=== PATIENT | male | born 1980 | race Caucasian/White ===

== ENCOUNTER 2019-06-19 17:09 | Emergency (ER) | payer MEDICARE, MEDICAID ==
[~2019-06-19] VITALS: Ht 190 cm; Wt 66.8 kg
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
[2019-06-19 18:20] LABS: HEMATOCRIT 31 % (40-54); HEMOGLOBIN 9.9 G/DL (13.3-17.7); MEAN CORPUSCULAR HEMOGLOBIN 31 PG (25-34); MEAN CORPUSCULAR HGB CONC 32 G/DL (32-36); MEAN CORPUSCULAR VOLUME 96 FL (80-99); WHITE BLOOD COUNT 4.4 10^3/uL (4.3-11.0)
[2019-06-19 18:21] LABS: BASOPHILS # (AUTO) 0.1 10^3/uL (0.0-0.1); BASOPHILS % (AUTO) 1 % (0-10); EOSINOPHILS % (AUTO) 1 % (0-10); LYMPHOCYTES # (AUTO) 0.9 X 10^3 (1.0-4.0); LYMPHOCYTES % (AUTO) 21 % (12-44); MEAN PLATELET VOLUME 9.8 FL (7.4-10.4); MONOCYTES # (AUTO) 0.5 X 10^3 (0.0-1.0); MONOCYTES % (AUTO) 11 % (0-12); NEUTROPHILS # (AUTO) 2.9 X 10^3 (1.8-7.8); NEUTROPHILS % (AUTO) 66 % (42-75); PLATELET COUNT 174 10^3/uL (130-400)
[2019-06-19 18:40] LABS: ALANINE AMINOTRANSFERASE 11 U/L (0-55); ALKALINE PHOSPHATASE 44 U/L (40-136); BILIRUBIN,TOTAL 0.8 MG/DL (0.1-1.0); BUN/CREATININE RATIO 7; CALCIUM 9.1 MG/DL (8.5-10.1); CARBON DIOXIDE 22 MMOL/L (21-32); CHLORIDE 101 MMOL/L (98-107); CREATININE SERUM 1.02 MG/DL (0.60-1.30); GFR ESTIMATED > 60; GLUCOSE 78 MG/DL (70-105); POTASSIUM 3.7 MMOL/L (3.6-5.0); SODIUM 143 MMOL/L (135-145); TOTAL PROTEIN 6.5 GM/DL (6.4-8.2)
[2019-06-19 18:41] LABS: ACETAMINOPHEN < 10 UG/ML (10-30); ALBUMIN 4.1 GM/DL (3.2-4.5); SALICYLATE < 5.0 MG/DL (5.0-20.0)
--- NOTE | 2019-06-19 19:00 | NUR ---
Report to Chantell RUIZ.
--- NOTE | 2019-06-19 19:40 | NUR ---
pt ambulated to restroom, pt remains non verbal with staff when talking with pt.
--- NOTE | 2019-06-19 20:22 | NUR ---
pt wandering in [facility], family remains present with pt
--- NOTE | 2019-06-19 20:25 | NUR ---
pt inappropriate with laugh when questioned about needing urine specimen. Family will try to help pt obtain.
--- NOTE | 2019-06-19 20:45 | NUR ---
Shree elizondo in ED - 06/19/19 at 2249 by [id number] pt inappropriate with marisa when questioned about needing urine specimen.
[2019-06-19 20:49] LABS: AMPHETAMINE SCREEN, URINE NEGATIVE (NEGATIVE); BARBITURATE SCREEN URINE NEGATIVE (NEGATIVE); BENZODIAZEPINES SCREEN URINE NEGATIVE (NEGATIVE); CANNABINOID SCREEN, URINE NEGATIVE (NEGATIVE); COCAINE SCREEN URINE NEGATIVE (NEGATIVE); METHADONE STAT NEGATIVE (NEGATIVE); METHAMPHETAMINE SCREEN URINE S NEGATIVE (NEGATIVE); OPIATE SCREEN URINE NEGATIVE (NEGATIVE); OXYCODONE STAT NEGATIVE (NEGATIVE); PROPOXYPHENE STAT NEGATIVE (NEGATIVE); TRICYCLIC ANTIDEPRESSANTS SCRE NEGATIVE (NEGATIVE)
--- NOTE | 2019-06-19 21:20 | NUR ---
[facility] notified of need for screening. ref# [id number]
--- NOTE | 2019-06-19 22:00 | NUR ---
Nadeen with [facility] attempting to screen pt, pt remains non verbal. [facility] will try to get a screener on site since pt does not like video monitor
[2019-06-19 22:32] VITALS: BP 130/78
--- NOTE | 2019-06-19 22:50 | NUR ---
Mitch with [facility] here for face to face screening
[2019-06-20 00:45] LABS: BILIRUBIN,URINE 2+ (NEGATIVE); CALCIUM OXALATE CRYSTALS,UR MODERATE /LPF; CLARITY,URINE CLEAR; COLOR,URINE YELLOW; GLUCOSE, URINE (UA) NEGATIVE (NEGATIVE); KETONES,URINE 3+ (NEGATIVE); LEUKOCYTE ESTERASE ,URINE NEGATIVE (NEGATIVE); NITRITE,URINE NEGATIVE (NEGATIVE); PH,URINE 5.5 (5-9); PROTEIN,URINE NEGATIVE (NEGATIVE)
[2019-06-20 02:12] VITALS: BP 108/55
--- NOTE | 2019-06-20 02:20 | NUR ---
Mitch with [facility] called stating [facility] wants affidavits from pts mother and sister.
--- NOTE | 2019-06-20 03:05 | NUR ---
affidavits from mother and sister faxed to [facility]
[2019-06-20 04:32] VITALS: BP 99/48
--- NOTE | 2019-06-20 05:10 | NUR ---
[facility] called to talk with Dr Terrell, they have accepted pt, will call back with a bed.
--- NOTE | 2019-06-20 06:05 | NUR ---
report called to Vanita at [facility]
--- NOTE | 2019-06-20 07:25 | NUR ---
Approach to patient standing in the dark in the corner of patient room. Family is present. Vitals needed for transfer. Pt allows applying NIBP and SaO2 but head darts from every form of thermometer. Family state he has fear of cutting hair and think he is not understanding these are thermometers.
[2019-06-20 07:30] VITALS: BP 101/64
--- NOTE | 2019-06-20 07:30 | NUR ---
EMS here for transfer.
[2019-06-20 07:45] VITALS: BP 101/64
--- NOTE | 2019-06-20 07:45 | NUR ---
EMS departure from ER to [facility]. Call to Michelle to advice of depart with approx 1 hr ETA.
== END 2019-06-20 07:45 | disposition short-term general hospital (02) ==
LOC: ER FS 17:13
DX: F28 Other psychotic disorder not due to a substance or known physiological condition (principal); F20.9 Schizophrenia, unspecified; Z91.14 Patient's other noncompliance with medication regimen
CPT/HCPCS: 36415; 80053; 80306; 80320; 80329; 81000; 85025; 93005

== ENCOUNTER 2019-11-17 13:20 | Emergency (ER) | payer MEDICARE, MEDICAID ==
[~2019-11-17] VITALS: Ht 187 cm; Wt 81.0 kg
--- OUTSIDE RECORDS SUMMARY | 2019-11-17 13:25 | XMS REPORT | Continuity of Care Document ---
Author Organization Unknown Address Unknown Phone Unavailable Allergies Active Description Code Type Severity Reaction Onset Reported/Identified Relationship to Patient Clinical Status Yes No Known Drug Allergies [id number] Drug Allergy Unknown N/A 06/20/2019 Medications There is no data. Problems Date Dx Coded Attending Type Code Diagnosis Diagnosed By 06/20/2019 TOBY QUINTANA MD, Ot F20. 9 SCHIZOPHRENIA, UNSPECIFIED 06/20/2019 TOBY QUINTANA MD, Ot F28 OT PSYCH DISORDER NOT DUE TO A SUB OR K 06/20/2019 TOBY QUINTANA MD, Ot Z91. 14 PATIENT'S OTHER NONCOMPLIANCE WITH MEDIC 06/25/2019 TOBY QUINTANA MD, Ot F20. 9 SCHIZOPHRENIA, UNSPECIFIED 06/25/2019 TOBY QUINTANA MD, Ot F28 OT PSYCH DISORDER NOT DUE TO A SUB OR K 06/25/2019 TOBY QUINTANA MD, Ot Z91. 14 PATIENT'S OTHER NONCOMPLIANCE WITH MEDIC Procedures There is no data. Results Test Result Range Complete blood count (CBC) with automate d white blood cell (WBC) differential - 06/19/19 18:00 Blood leukocytes automated count (number/volume) 4.4 10*3/uL 4.3-11.0 Blood erythrocytes automated count (number/volume) 3.20 10*6/uL 4.35-5.85 Venous blood hemoglobin measurement (mass/volume) 9.9 g/dL 13.3-17.7 Blood hematocrit (volume fraction) 31 % 40-54 Automated erythrocyte mean corpuscular volume 96 [ foz_us] 80-99 Automated erythrocyte mean corpuscular h emoglobin (mass per erythrocyte) 31 pg 25-34 Automated erythrocyte mean corpuscular h emoglobin concentration measurement (mass/volume) 32 g/dL 32-36 Automated erythrocyte distribution width ratio 14. 0 % 10.0- 14.5 Automated blood platelet count (count/volume) 174 10*3/uL 130-400 Automated blood platelet mean volume measurement 9.8 [foz_us] 7.4-10.4 Automated blood neutrophils/100 leukocytes 66 % 42-75 Automated blood lymphocytes/100 leukocytes 21 % 12-44 Blood monocytes/100 leukocytes 11 % 0-12 Automated blood eosinophils/100 leukocytes 1 % 0-10 Automated blood basophils/100 leukocytes 1 % 0-10 Blood neutrophils automated count (number/volume) 2.9 10*3 1.8-7.8 Blood lymphocytes automated count (number/volume) 0.9 10*3 1.0-4.0 Blood monocytes automated count (number/volume) 0. 5 10*3 0.0-1.0 Automated eosinophil count 0.0 10*3/uL 0 .0-0.3 Automated blood basophil count (count/volume) 0.1 10*3/uL 0.0-0.1 Comprehensive metabolic panel - 06/19/19 18:00 Serum or plasma sodium measurement (moles/volume) 143 mmol/L 135-145 Serum or plasma potassium measurement (moles/volume) 3.7 mmol/L 3.6-5.0 Serum or plasma chloride measurement (moles/volume) 101 mmol/L 98-107 Carbon dioxide 22 mmol/L 21-32 Serum or plasma anion gap determination (moles/volume) 20 mmol/L 5-14 Serum or plasma urea nitrogen measurement (mass/volume ) 7 mg/dL 7-18 Serum or plasma creatinine measurement (mass/volume) 1.02 mg/dL 0.60-1.30 Serum or plasma urea nitrogen/creatinine mass ratio 7 NRG Serum or plasma creatinine measurement w ith calculation of estimated glomerular filtration rate > NRG Serum or plasma glucose measurement (mass/volume) 78 mg/dL 70-105 Serum or plasma calcium measurement (mass/volume) 9.1 mg/dL 8.5-10.1 Serum or plasma total bilirubin measurement (mass/volu me) 0.8 mg/dL 0.1-1.0 Serum or plasma alkaline phosphatase tonya surement (enzymatic activity/volume) 44 U/L 40-136 Serum or plasma aspartate aminotransfera se measurement (enzymatic activity/volume) 23 U/L 5-34 Serum or plasma alanine aminotransferase measurement (enzymatic activity/volume) 11 U/L 0-55 Serum or plasma protein measurement (mass/volume) 6.5 g/dL 6.4-8.2 Serum or plasma albumin measurement (mass/volume) 4.1 g/dL 3.2-4.5 CALCIUM CORRECTED 9.0 mg/dL 8.5-10.1 Serum or plasma salicylates measurement (mass/volume) - 06/19/19 18:00 Serum or plasma salicylates measurement (mass/volume) < mg/dL 5.0-20.0 Serum or plasma acetaminophen measuremen t (mass/volume) - 06/19/19 18:00 Serum or plasma acetaminophen measurement (mass/volume ) < ug/mL 10-30 Serum or plasma ethanol measurement (mas s/volume) - 06/19/19 18:00 Serum or plasma ethanol measurement (mass/volume) < mg/dL <10 Urine drug screening test - 06/19/19 20: 27 Urine phencyclidine detection by screening method NEGATIVE NEGATIVE Urine benzodiazepines detection by screening method NEGATIVE NEGATIVE Urine cocaine detection NEGATIVE NEGATI VE Urine amphetamines detection by screening method N EGATIVE NEGATIVE Urine methamphetamine detection by screening method NEGATIVE NEGATIVE Urine cannabinoids detection by screening method N EGATIVE NEGATIVE Urine opiates detection by screening method NEGATI VE NEGATIVE Urine barbiturates detection NEGATIVE N EGATIVE Screening urine tricyclic antidepressants detection NEGATIVE NEGATIVE Urine methadone detection by screening method NEGA TIVE NEGATIVE Urine oxycodone detection NEGATIVE NEGA TIVE Urine propoxyphene detection NEGATIVE N EGATIVE Complete urinalysis with reflex to cultu re - 06/19/19 20:27 Urine color determination YELLOW NRG Urine clarity determination CLEAR NR G Urine pH measurement by test strip 5.5 5-9 Specific gravity of urine by test strip > 1.016-1.022 Urine protein assay by test strip, semi-quantitative NEGATIVE NEGATIVE Urine glucose detection by automated test strip NE GATIVE NEGATIVE Erythrocytes detection in urine sediment by light micr oscopy NEGATIVE NEGATIVE Urine ketones detection by automated test strip 3+ NEGATIVE Urine nitrite detection by test strip NEGATIVE NEGATIVE Urine total bilirubin detection by test strip 2+ NEGATIVE Urine urobilinogen measurement by automated test strip (mass/volume) 0.2 mg/dL < = 1.0 Urine leukocyte esterase detection by dipstick NEG ATIVE NEGATIVE Automated urine sediment erythrocyte cou nt by microscopy (number/high power field) NONE NRG Automated urine sediment leukocyte count by microscopy (number/high power field) NONE NRG Bacteria detection in urine sediment by light microsco py NONE NRG Crystals detection in urine sediment by light microsco py PRESENT NRG Casts detection in urine sediment by light microscopy NONE NRG Mucus detection in urine sediment by light microscopy SMALL NRG Complete urinalysis with reflex to culture NO NRG Calcium oxalate crystals detection in ur ine sediment by light microscopy MODERATE NRG Encounters ACCT No. Visit Date/Time Discharge Status Pt. Type Provider Facility Loc./Unit Complaint [id number] 08/12/2019 09:00:00 08/12/2019 23:59: 59 CLS Outpatient SELF, ABHIJEET Lee [facility] [id number] 06/19/2019 17:13:00 019 07:45:00 DIS Emergency MARIANO CISSE, TOBY Bray [facility] ER FS MENTAL EVALUATION
--- NOTE | 2019-11-17 13:34 | ED Psychosocial ---
General Chief Complaint: Psych/Social Disorder Stated Complaint: AMS/NEEDS AN IV History of Present Illness Date Seen by Provider: Nov 17, 2019 Time Seen by Provider: 13:25 Initial Comments Patient with a history of schizophrenia presents to ER with chief complaint for the Lord told him he needed to have an IV placed for no other reason. No cough fever chills shortness of breath nausea vomiting or pain. History obtained from his mother who accompanies him Hillary: Discussed the case with his mother and she relays a history that he has been successful on the Invega for the past for few years. She says that he was doing very well living in a retirement/apartment in [place] and then after his last dose of Invega on July 09 he stopped taking the shot. Since that time he's had increased hallucinations, mosque delusions and feeling that God is telling him that all he needs to do is stop eating and drinking as it is hurting other people. His mother says he has a history of eating disorders. She said 2015 he saved up some money and went to [facility] and was found that it on a park bench and they got him in the hospital and since then he's been living in [place]. He follows with Dr. Hamilton for 1 visit. He is known to Mariella Parks psychiatrist at [facility] where he spent about a week inpatient June 19, 2019. She is concerned that he is to his breaking point where he n eeds to get back on some kind of psychiatric medication. The patient says he has his concerns with being on Invega and that God says all he needs to do is stop eating and drinking and get an IV. Allergies and Home Medications Allergies Coded Allergies: No Known Drug Allergies (Unverified , 06/20/19) Home Medications No Active Prescriptions or Reported Meds Patient Home Medication List Home Medication List Reviewed: Yes Review of Systems Constitutional: No chills, No fever EENTM: No ear discharge, No ear pain Respiratory: No cough, No phlegm, No short of breath Cardiovascular: No chest pain, No edema Gastrointestinal: No abdominal pain, No nausea, No vomiting Genitourinary: No discharge, No dysuria Musculoskeletal: No back pain, No joint pain Skin: No pruritus, No rash Psychiatric/Neurological: See HPI; Denies Headache, Denies Numbness All Other Systems Reviewed Negative Unless Noted: Yes Past Qtwozsh-Hnvprz-Imlvmh Hx Patient Social History Alcohol Use: Denies Use Recreational Drug Use: No Smoking Status: Never a Smoker Recent Foreign Travel: No Contact w/Someone Who Travel: No Recent Hopitalizations: No Immunizations Up To Date Tetanus Booster (TDap): Unknown Seasonal Allergies Seasonal Allergies: No Past Medical History Surgeries: No Respiratory: No Cardiac: No Neurological: No Genitourinary: No Gastrointestinal: No Musculoskeletal: No Endocrine: No HEENT: No Cancer: No Psychosocial: Yes Schizophrenia Integumentary: No Blood Disorders: No Physical Exam Vital Signs - First Documented 11/17/19 13:41 Temp 36.9 Pulse 78 Resp 20 B/P (MAP) 118/86 (97) Pulse Ox 98 Capillary Refill : Height, Weight, BMI Height: '" Weight: lbs. oz. kg; 18.00 BMI Method: General Appearance: WD/WN, no apparent distress HEENT: PERRL/EOMI; No pharynx normal (oropharynx mildly) Neck: non-tender, full range of motion, supple, normal inspection Respiratory: no respiratory distress, no accessory muscle use Cardiovascular: normal peripheral pulses, regular rate, rhythm Gastrointestinal: normal bowel sounds, non tender, soft Neurologic/Psychiatric: alert, other (flat affect) Appearance/Memory: no memory impairment, disheveled (long, unkempt hair and dawson) Behavior/Eye Contact: cooperative, good eye contact, decreased rate of speech Thoughts/Hallucinations: auditory hallucinations (voice of God directs him to stop eating and drinking), delusions (mosque); No paranoid, No persecution; r eligious Skin: normal color, warm/dry Progress/Results/Core Measures Results/Orders Lab Results Laboratory Tests Test 11/17/19 13:28 11/17/19 13:38 Range/Units Urine Color YELLOW Urine Clarity CLEAR Urine pH 6.5 5-9 Urine Specific [place] <=1.005 1.016-1.022 Urine Protein NEGATIVE NEGATIVE Urine Glucose (UA) NEGATIVE NEGATIVE Urine Ketones NEGATIVE NEGATIVE Urine Nitrite NEGATIVE NEGATIVE Urine Bilirubin NEGATIVE NEGATIVE Urine Urobilinogen 0.2 < = 1.0 MG/DL Urine Leukocyte Esterase NEGATIVE NEGATIVE Urine RBC (Auto) TRACE-I NEGATIVE Urine RBC NONE /HPF Urine WBC NONE /HPF Urine Crystals NONE /LPF Urine Bacteria NEGATIVE /HPF Urine Casts NONE /LPF Urine Mucus NEGATIVE /LPF Urine Culture Indicated NO Urine Opiates Screen NEGATIVE NEGATIVE Urine Oxycodone Screen NEGATIVE NEGATIVE Urine Methadone Screen NEGATIVE NEGATIVE Urine Propoxyphene Screen NEGATIVE NEGATIVE Urine Barbiturates Screen NEGATIVE NEGATIVE Ur Tricyclic Antidepressants Screen NEGATIVE NEGATIVE Urine Phencyclidine Screen NEGATIVE NEGATIVE Urine Amphetamines Screen NEGATIVE NEGATIVE Urine Methamphetamines Screen NEGATIVE NEGATIVE Urine Benzodiazepines Screen NEGATIVE NEGATIVE Urine Cocaine Screen NEGATIVE NEGATIVE Urine Cannabinoids Screen NEGATIVE NEGATIVE White Blood Count 3.4 L 4.3-11.0 10^3/uL Red Blood Count 4.58 4.35-5.85 10^6/uL Hemoglobin 14.0 13.3-17.7 G/DL Hematocrit 42 40-54 % Mean Corpuscular Volume 91 80-99 FL Mean Corpuscular Hemoglobin 31 25-34 PG Mean Corpuscular Hemoglobin Concent 34 32-36 G/DL Red Cell Distribution Width 12.7 10.0-14.5 % Platelet Count 187 130-400 10^3/uL Mean Platelet Volume 9.9 7.4-10.4 FL Neutrophils (%) (Auto) 62 42-75 % Lymphocytes (%) (Auto) 20 12-44 % Monocytes (%) (Auto) 15 H 0-12 % Eosinophils (%) (Auto) 2 0-10 % Basophils (%) (Auto) 2 0-10 % Neutrophils # (Auto) 2.1 1.8-7.8 X 10^3 Lymphocytes # (Auto) 0.7 L 1.0-4.0 X 10^3 Monocytes # (Auto) 0.5 0.0-1.0 X 10^3 Eosinophils # (Auto) 0.1 0.0-0.3 10^3/uL Basophils # (Auto) 0.1 0.0-0.1 10^3/uL Sodium Level 139 135-145 MMOL/L Potassium Level 4.2 3.6-5.0 MMOL/L Chloride Level 103 98-107 MMOL/L Carbon Dioxide Level 22 21-32 MMOL/L Anion Gap 14 5-14 MMOL/L Blood Urea Nitrogen 7 7-18 MG/DL Creatinine 1.14 0.60-1.30 MG/DL Estimat Glomerular Filtration Rate > 60 BUN/Creatinine Ratio 6 Glucose Level 95 70-105 MG/DL Calcium Level 9.8 8.5-10.1 MG/DL Corrected Calcium 8.5-10.1 MG/DL Total Bilirubin 0.8 0.1-1.0 MG/DL Aspartate Amino Transf (AST/SGOT) 23 5-34 U/L Alanine Aminotransferase (ALT/SGPT) 18 0-55 U/L Alkaline Phosphatase 76 40-136 U/L Total Protein 7.7 6.4-8.2 GM/DL Albumin 4.7 H 3.2-4.5 GM/DL Salicylates Level < 5.0 L 5.0-20.0 MG/DL Acetaminophen Level < 10 L 10-30 UG/ML Serum Alcohol < 10 <10 MG/DL My Orders Orders - BECKY YBARRA Ua Culture If Indicated (11/17/19 13:25) Cbc With Automated Diff (11/17/19:25) Comprehensive Metabolic Panel (11/17/19:) Alcohol (11/17/19:25) Drug Screen Stat (Urine) (11/17/19:25) Acetaminophen (11/17/19 13:25) Salicylate (11/17/19 13:25) Ekg Tracing (11/17/19:25) Ed Iv/Invasive Line Start (11/17/19:25) Monitor-Rhythm Ecg Trace Only (11/17/19 13:25) Vital Signs/I&O 11/17/19 13:41 Temp 36.9 Pulse 78 Resp 20 B/P (MAP) 118/86 (97) Pulse Ox 98 Progress Progress Note #1: Time: 13:47 Progress Note I think would be appropriate to get this patient to inpatient psychiatry if we can get him talked into going voluntarily. He seemed open to doing whatever we have suggested thus far. We are going to check some labs, urine and EKG. He does not want anything to eat drink or having any pain right now. He does not seem to have any constitutional symptoms. The patient states he was 190 pounds last time he was at the Dr. office. Today he weighs 178. This is a 6% weight loss over the past 3 or 4 months. Progress Note #2: Time: 14:26 Progress Note We discussed the labs with the patient and our concerns with his weight loss and that he might be more successful on medications. The patient had some concerns with the Invega so we invited him to go inpatient since he does not have an outpatient psychiatrist or primary care doctor he routinely follows with. He says he would like to go inpatient and look for a medication regimen that would better suited his concerns. He continues to endorse audio hallucinations be been told by God not to eat and drink and that the Invega was not good for him and was going to cause a heart attack. Patient has been polite and calm the entire stay and spent most of his time in his room. We have offered him something to eat or drink as well as to watch TV and he has declined both these things this time. He does have a bottle of water and has drank about half of the since he's been here. [facility] is at capacity. Arnaldovictor hugo will review the case. Private Transporters are available. Mother updated. Progress Note #3: Time: 16:20 Progress Note Patient has been up and gone to the bathroom on his own as well as drink some water but has declined any food again. Initial ECG Impression Date: Nov 17, 2019 Initial ECG Impression Time: 13:33 Initial ECG Rate: 76 Initial ECG Rhythm: Normal Sinus Initial ECG Intervals: Normal Initial ECG Impression: Normal, Nonspecific Changes Initial ECG Comparisson: Unchanged Comment Normal sinus rhythm without clinically relevant ST elevation or depression. Departure Impression Primary Impression: Schizophrenia Qualified Codes: F20.9 - Schizophrenia, unspecified Additional Impressions: Nonadherence to medical treatment Anorexia Disposition: 65 XFER TO PSYCH HOSP/UNIT Condition: Stable Transfer Transfer Reason: Exceeds level of care Time Spoke to Accepting Phy: 16:28 Transfer Progress Notes 1425: [facility] Inpt Called and admission packet sent. 1615: Ama called back and will put us in touch with Psychiatrist. Transfer Time: 17:06 Transfer Facility: [facility] Method of Transfer: Private Vehicle (José) Departure-Patient Inst. Referrals: NO,LOCAL PHYSICIAN (PCP/Family) Primary Care Physician Scripts No Active Prescriptions or Reported Meds BECKY YBARRA Nov 17, 2019 13:34
[2019-11-17 13:48] LABS: BASOPHILS # (AUTO) 0.1 10^3/uL (0.0-0.1); BASOPHILS % (AUTO) 2 % (0-10); EOSINOPHILS # (AUTO) 0.1 10^3/uL (0.0-0.3); EOSINOPHILS % (AUTO) 2 % (0-10); HEMATOCRIT 42 % (40-54); LYMPHOCYTES # (AUTO) 0.7 X 10^3 (1.0-4.0); LYMPHOCYTES % (AUTO) 20 % (12-44); MEAN CORPUSCULAR HEMOGLOBIN 31 PG (25-34); MEAN CORPUSCULAR HGB CONC 34 G/DL (32-36); MEAN CORPUSCULAR VOLUME 91 FL (80-99); MEAN PLATELET VOLUME 9.9 FL (7.4-10.4); MONOCYTES # (AUTO) 0.5 X 10^3 (0.0-1.0); MONOCYTES % (AUTO) 15 % (0-12); NEUTROPHILS # (AUTO) 2.1 X 10^3 (1.8-7.8); NEUTROPHILS % (AUTO) 62 % (42-75); PLATELET COUNT 187 10^3/uL (130-400); RED CELL DISTRIBUTION WIDTH 12.7 % (10.0-14.5); WHITE BLOOD COUNT 3.4 10^3/uL (4.3-11.0)
[2019-11-17 13:50] LABS: BILIRUBIN,URINE NEGATIVE (NEGATIVE); CLARITY,URINE CLEAR; COLOR,URINE YELLOW; GLUCOSE, URINE (UA) NEGATIVE (NEGATIVE); KETONES,URINE NEGATIVE (NEGATIVE); LEUKOCYTE ESTERASE ,URINE NEGATIVE (NEGATIVE); NITRITE,URINE NEGATIVE (NEGATIVE); PH,URINE 6.5 (5-9); PROTEIN,URINE NEGATIVE (NEGATIVE)
[2019-11-17 14:03] LABS: BACTERIA,URINE NEGATIVE /HPF
[2019-11-17 14:04] LABS: AMPHETAMINE SCREEN, URINE NEGATIVE (NEGATIVE); BARBITURATE SCREEN URINE NEGATIVE (NEGATIVE); BENZODIAZEPINES SCREEN URINE NEGATIVE (NEGATIVE); CANNABINOID SCREEN, URINE NEGATIVE (NEGATIVE); COCAINE SCREEN URINE NEGATIVE (NEGATIVE); METHADONE STAT NEGATIVE (NEGATIVE); METHAMPHETAMINE SCREEN URINE S NEGATIVE (NEGATIVE); OPIATE SCREEN URINE NEGATIVE (NEGATIVE); OXYCODONE STAT NEGATIVE (NEGATIVE); PROPOXYPHENE STAT NEGATIVE (NEGATIVE); TRICYCLIC ANTIDEPRESSANTS SCRE NEGATIVE (NEGATIVE)
[2019-11-17 14:05] LABS: ALBUMIN 4.7 GM/DL (3.2-4.5); CHLORIDE 103 MMOL/L (98-107); POTASSIUM 4.2 MMOL/L (3.6-5.0); SODIUM 139 MMOL/L (135-145)
[2019-11-17 14:06] LABS: CALCIUM 9.8 MG/DL (8.5-10.1)
[2019-11-17 14:07] LABS: GLUCOSE 95 MG/DL (70-105)
[2019-11-17 14:08] LABS: CARBON DIOXIDE 22 MMOL/L (21-32); TOTAL PROTEIN 7.7 GM/DL (6.4-8.2)
[2019-11-17 14:09] LABS: BILIRUBIN,TOTAL 0.8 MG/DL (0.1-1.0)
[2019-11-17 14:11] LABS: ALKALINE PHOSPHATASE 76 U/L (40-136); CREATININE SERUM 1.14 MG/DL (0.60-1.30); GFR ESTIMATED > 60
[2019-11-17 14:13] LABS: BUN/CREATININE RATIO 6
[2019-11-17 14:14] LABS: ALANINE AMINOTRANSFERASE 18 U/L (0-55); SALICYLATE < 5.0 MG/DL (5.0-20.0)
[2019-11-17 14:15] LABS: ACETAMINOPHEN < 10 UG/ML (10-30)
--- NOTE | 2019-11-17 16:00 | NUR ---
PT INFORMED OF PROGRESS TO TRANSFER
--- NOTE | 2019-11-17 16:20 | NUR ---
ICE WATER TO PT AT THIS TIME. PT OFFERED MEAL TRAY/FOOD BUT DOES NOT REPORT WANTING ANYTHING AT THIS TIME.
--- NOTE | 2019-11-17 17:03 | NUR ---
[facility]ARME[facility] GON[facility]ALE[facility] HERE TO TRANSPORT PT AT THIS TIME.
[2019-11-17 17:08] VITALS: BP 116/84
== END 2019-11-17 17:08 ==
LOC: EDUNIT# 13:20 → ER 13:21
DX: F20.9 Schizophrenia, unspecified (principal); R63.0 Anorexia; Z91.19 Patient's noncompliance with other medical treatment and regimen
CPT/HCPCS: 36415; 80053; 80306; 80320; 80329; 81000; 85025; 93005; 93041

== ENCOUNTER → 2021-05-09 | Outpatient (CLI) | payer MEDICARE, MEDICAID ==
[2021-05-09 10:17] LABS: BACTERIA,URINE NEGATIVE /HPF; BILIRUBIN,URINE NEGATIVE (NEGATIVE); CLARITY,URINE CLEAR; COLOR,URINE YELLOW; GLUCOSE, URINE (UA) NEGATIVE (NEGATIVE); KETONES,URINE NEGATIVE (NEGATIVE); LEUKOCYTE ESTERASE ,URINE NEGATIVE (NEGATIVE); NITRITE,URINE NEGATIVE (NEGATIVE); PROTEIN,URINE NEGATIVE (NEGATIVE); RBC,URINE 0-2 /HPF
== END ==
PROVIDERS: ATTEND Pediatrics
DX: R30.0 Dysuria (principal)
CPT/HCPCS: 81000; 87088

== ENCOUNTER 2021-07-18 08:51 | Emergency (ER) | payer MEDICARE, MEDICAID ==
--- NOTE | 2021-07-18 08:54 | ED General ---
General Stated Complaint: HYPOTHERMIA; EXPOSURE History of Present Illness Date Seen by Provider: Jul 18, 2021 Time Seen by Provider: 08:54 Initial Comments 41-year-old male brought in due to concerns for hypothermia and environmental exposure. Patient has a history of severe paranoid schizophrenia and is a resident at [facility]. Patient at some point this morning open the window and crawled out and was found walking around town. Patient does not provide us any information and does not communicate with us. 0915: Per [facility] [place], patient was last seen in their building at approximately 715. They found the window open around 8 when he was missing. They report that he is at his normal baseline mentation and demeanor. Allergies and Home Medications Allergies Coded Allergies: No Known Drug Allergies (Unverified , 06/20/19) Patient Home Medication List Home Medication List Reviewed: Yes No Active Prescriptions or Reported Meds Review of Systems Review of Systems Constitutional: see HPI Unable to obtain further review of systems due to noncommunicative Past Tdvmhlj-Hfykya-Cqyalt Hx Immunizations Up To Date Tetanus Booster (TDap): Unknown Seasonal Allergies Seasonal Allergies: No Past Medical History Surgeries: No Respiratory: No Cardiac: No Neurological: No Genitourinary: No Gastrointestinal: No Musculoskeletal: No Endocrine: No HEENT: No Cancer: No Psychosocial: Yes Eating Disorder, Schizophrenia Integumentary: No Blood Disorders: No Physical Exam Vital Signs Vital Signs - First Documented 07/18/21 08:51 Temp 36.1 Pulse 104 Resp 21 B/P (MAP) 124/71 (88) Pulse Ox 99 O2 Delivery Room Air Capillary Refill : Height, Weight, BMI Height: '" Weight: lbs. oz. kg; 23.00 BMI Method: General Appearance: No Apparent Distress, Other (Disheveled) Eyes: Bilateral Eye Normal Inspection Neck: Non Tender, Supple Respiratory: Lungs Clear, Normal Breath Sounds Cardiovascular: Regular Rate, Rhythm, No Edema Gastrointestinal: Non Tender, Soft Extremity: Normal Capillary Refill Neurologic/Psychiatric: Alert, Other (Patient stairs off, he will look at you but will not communicate or answer any questions) Skin: Cool Progress/Results/Core Measures Suspected Sepsis SIRS Temperature: Pulse: Respiratory Rate: Laboratory Tests 07/18/21 09:00: White Blood Count 5.5 Blood Pressure / Mean: Laboratory Tests 07/18/21 09:00: Creatinine 1.03, Platelet Count 198, Total Bilirubin 1.3H Results/Orders Lab Results Laboratory Tests Test 07/18/21 09:00 Range/Units White Blood Count 5.5 4.3-11.0 10^3/uL Red Blood Count 4.51 4.30-5.52 10^6/uL Hemoglobin 13.8 13.3-17.7 g/dL Hematocrit 42 40-54 % Mean Corpuscular Volume 93 80-99 fL Mean Corpuscular Hemoglobin 31 25-34 pg Mean Corpuscular Hemoglobin Concent 33 32-36 g/dL Red Cell Distribution Width 13.0 10.0-14.5 % Platelet Count 198 130-400 10^3/uL Mean Platelet Volume 10.3 9.0-12.2 fL Immature Granulocyte % (Auto) 0 % Neutrophils (%) (Auto) 81 H 42-75 % Lymphocytes (%) (Auto) 10 L 12-44 % Monocytes (%) (Auto) 8 0-12 % Eosinophils (%) (Auto) 0 0-10 % Basophils (%) (Auto) 1 0-10 % Neutrophils # (Auto) 4.4 1.8-7.8 X 10^3 Lymphocytes # (Auto) 0.5 L 1.0-4.0 X 10^3 Monocytes # (Auto) 0.4 0.0-1.0 X 10^3 Eosinophils # (Auto) 0.0 0.0-0.3 10^3/uL Basophils # (Auto) 0.1 0.0-0.1 10^3/uL Immature Granulocyte # (Auto) 0.0 0.0-0.1 10^3/uL Sodium Level 138 135-145 MMOL/L Potassium Level 3.8 3.6-5.0 MMOL/L Chloride Level 99 98-107 MMOL/L Carbon Dioxide Level 18 L 21-32 MMOL/L Anion Gap 21 H 5-14 MMOL/L Blood Urea Nitrogen 14 7-18 MG/DL Creatinine 1.03 0.60-1.30 MG/DL Estimat Glomerular Filtration Rate 80 BUN/Creatinine Ratio 14 Glucose Level 113 H 70-105 MG/DL Calcium Level 9.1 8.5-10.1 MG/DL Corrected Calcium 8.7 8.5-10.1 MG/DL Total Bilirubin 1.3 H 0.1-1.0 MG/DL Aspartate Amino Transf (AST/SGOT) 26 5-34 U/L Alanine Aminotransferase (ALT/SGPT) 11 0-55 U/L Alkaline Phosphatase 70 40-136 U/L C-Reactive Protein < 0.30 <0.50 MG/DL Total Protein 7.9 6.4-8.2 GM/DL Albumin 4.5 3.2-4.5 GM/DL My Orders Orders - PAZ PAULSONR Awais DO Cbc With Automated Diff (07/18/21 08:54) Comprehensive Metabolic Panel (07/18/21 08:54) Drug Screen Stat (Urine) (07/18/21 08:54) Ua Culture If Indicated (07/18/21 08:54) Crp Fs (07/18/21 08:54) Ns Iv 1000 Ml (Sodium Chloride 0.9%) (07/18/21 09:00) Creatine Kinase (07/18/21 09:00) Vital Signs/I&O 07/18/21 08:51 Temp 36.1 Pulse 104 Resp 21 B/P (MAP) 124/71 (88) Pulse Ox 99 O2 Delivery Room Air Capillary Refill : Departure Impression Primary Impression: Exposure to environmental cold Qualified Codes: T69.9XXA - Effect of reduced temperature, unspecified, init ial encounter Additional Impression: History of paranoid schizophrenia Disposition: 01 HOME, SELF-CARE Condition: Stable Departure-Patient Inst. Referrals: RAFFY CARTER MD (PCP/Family) Primary Care Physician Patient Instructions: Hypothermia Add. Discharge Instructions: Follow-up with his primary care provider as needed Scripts No Active Prescriptions or Reported Meds JUVENAL PAULSON DO Jul 18, 2021 08:54
[2021-07-18] MEDS ORDERED: NS IV 1000 ML 1,000 ML IV SCH (09:00)
[2021-07-18 09:06] LABS: BASOPHILS # (AUTO) 0.1 10^3/uL (0.0-0.1); BASOPHILS % (AUTO) 1 % (0-10); EOSINOPHILS % (AUTO) 0 % (0-10); HEMATOCRIT 42 % (40-54); HEMOGLOBIN 13.8 g/dL (13.3-17.7); LYMPHOCYTES # (AUTO) 0.5 X 10^3 (1.0-4.0); LYMPHOCYTES % (AUTO) 10 % (12-44); MEAN CORPUSCULAR HEMOGLOBIN 31 pg (25-34); MEAN CORPUSCULAR HGB CONC 33 g/dL (32-36); MEAN CORPUSCULAR VOLUME 93 fL (80-99); MEAN PLATELET VOLUME 10.3 fL (9.0-12.2); MONOCYTES # (AUTO) 0.4 X 10^3 (0.0-1.0); MONOCYTES % (AUTO) 8 % (0-12); NEUTROPHILS # (AUTO) 4.4 X 10^3 (1.8-7.8); NEUTROPHILS % (AUTO) 81 % (42-75); PLATELET COUNT 198 10^3/uL (130-400); WHITE BLOOD COUNT 5.5 10^3/uL (4.3-11.0)
[2021-07-18 09:26] LABS: ALKALINE PHOSPHATASE 70 U/L (40-136); BILIRUBIN,TOTAL 1.3 MG/DL (0.1-1.0); BUN/CREATININE RATIO 14; CALCIUM 9.1 MG/DL (8.5-10.1); CARBON DIOXIDE 18 MMOL/L (21-32); CHLORIDE 99 MMOL/L (98-107); CREATININE SERUM 1.03 MG/DL (0.60-1.30); GFR ESTIMATED 80; GLUCOSE 113 MG/DL (70-105); POTASSIUM 3.8 MMOL/L (3.6-5.0); SODIUM 138 MMOL/L (135-145)
[2021-07-18 09:27] LABS: ALANINE AMINOTRANSFERASE 11 U/L (0-55); ALBUMIN 4.5 GM/DL (3.2-4.5); TOTAL PROTEIN 7.9 GM/DL (6.4-8.2)
[2021-07-18 10:07] VITALS: BP 166/55
== END 2021-07-18 10:19 | disposition home or self-care (01) ==
LOC: EDUNIT# 08:51 → ER FS 08:52
DX: T69.9XXA Effect of reduced temperature, unspecified, initial encounter (principal)
CPT/HCPCS: 36415; 80053; 82550; 85025; 86141; 99283

== ENCOUNTER → 2023-02-06 | Outpatient (CLI) | payer OTHER, MEDICAID ==
[2023-02-06 17:34] LABS: HEMATOCRIT 38 % (40-54); HEMOGLOBIN 12.4 g/dL (13.3-17.7); MEAN CORPUSCULAR HEMOGLOBIN 30 pg (25-34); MEAN CORPUSCULAR HGB CONC 33 g/dL (32-36); MEAN CORPUSCULAR VOLUME 92 fL (80-99); MEAN PLATELET VOLUME 10.7 fL (9.0-12.2); PLATELET COUNT 144 10^3/uL (130-400); WHITE BLOOD COUNT 3.6 10^3/uL (4.3-11.0)
[2023-02-06 17:56] LABS: POTASSIUM 4.4 MMOL/L (3.6-5.0)
[2023-02-06 17:57] LABS: BILIRUBIN,TOTAL 0.6 MG/DL (0.1-1.0); CALCIUM 8.6 MG/DL (8.5-10.1); CREATININE SERUM 0.86 MG/DL (0.60-1.30); TOTAL PROTEIN 6.2 GM/DL (6.4-8.2)
[2023-02-06 22:30] LABS: FREE T4 (FREE THYROXINE) 0.87 NG/DL (0.70-1.48)
== END ==
PROVIDERS: ATTEND Pediatrics
DX: F20.9 Schizophrenia, unspecified (principal)
CPT/HCPCS: 80053; 84439; 84443; 85027